=== PATIENT | female | born 1970 | race American Indian/Alaskan Native ===

== ENCOUNTER 2021-05-27 07:09 | Emergency (ER) | payer OTHER ==
[2021-05-27 07:54] VITALS: BP 158/86
[2021-05-27] MEDS ORDERED: dexAMETHasone 4 MG/ML VIAL IM ONE (09:54)
[2021-05-27] MEDS ORDERED: KETOROLAC 10 MG TAB PO ONE (09:56)
[2021-05-27] MEDS ORDERED: CYCLOBENZAPRINE 10 MG TAB PO ONE (09:56)
--- NOTE | 2021-05-27 10:20 | Emergency Department Report ---
ED Back Pain/Injury HPI - General Chief Complaint: Back Pain/Injury Stated Complaint: BACK PAIN Time Seen by Provider: 05/27/21 09:49 Source: patient Limitations: No Limitations - History of Present Illness Initial Comments: 50-year-old black female presents to the emergency department for evaluation of few day history of back pain. States that she was moving some things around a few days ago and started to have pain to her right thoracic back area. She states that she used ibuprofen and heating pad and has some improvement with the pain, but when she woke up this morning, pain was worse with stiffness. She denies fever, unexplained weight loss, urinary symptoms and neurologic symptoms. She states that she has had similar back pain in the past. MD Complaint: back pain -: Gradual, days(s) (2-3) Similar Symptoms Previously: Yes Place: home Radiation: none Severity: moderate Severity scale (0 -10): 8 Quality: aching Consistency: constant Worsens With: movement, walking Associated Symptoms: denies: weakness, chest pain, numbness, difficulty walking, cough, difficulty urinating, diaphoresis, incontinence, fever/chills, constipation, headaches, abdominal pain, loss of appetite, malaise, nausea/vomiting, rash, seizure, shortness of breath, syncope Treatments Prior to Arrival: heat therapy, NSAIDS - Related Data Previous Rx's Medication Instructions Recorded Last Taken Type Cyclobenzaprine [Flexeril] 10 mg PO TID PRN #21 tab 05/27/21 Unknown Rx Lidocaine [Lidoderm] 1 each TP DAILY PRN #10 patch 05/27/21 Unknown Rx Naproxen [Naprosyn] 500 mg PO BID #14 tab 05/27/21 Unknown Rx Allergies Allergy/AdvReac Type Severity Reaction Status Date / Time doxycycline Allergy Unknown Verified 05/27/21 07:51 ED Review of Systems ROS: Stated complaint: BACK PAIN Other details as noted in HPI Comment: All other systems reviewed and negative Constitutional: denies: chills, fever Eyes: denies: vision change Respiratory: denies: cough, shortness of breath Cardiovascular: denies: chest pain, palpitations Gastrointestinal: denies: abdominal pain, nausea, vomiting Genitourinary: denies: urgency, dysuria, frequency, hematuria, discharge Musculoskeletal: back pain Skin: denies: rash, lesions Neurological: denies: headache, weakness, numbness, paresthesias, abnormal gait ED Past Medical Hx - Medications Home Medications: Home Medications Medication Instructions Recorded Confirmed Last Taken Type Cyclobenzaprine [Flexeril] 10 mg PO TID PRN #21 tab 05/27/21 Unknown Rx Lidocaine [Lidoderm] 1 each TP DAILY PRN #10 patch 05/27/21 Unknown Rx Naproxen [Naprosyn] 500 mg PO BID #14 tab 05/27/21 Unknown Rx ED Physical Exam - General Limitations: No Limitations General appearance: alert, in no apparent distress - Head Head exam: Present: atraumatic, normocephalic - Eye Eye exam: Present: normal appearance. Absent: conjunctival injection - Neck Neck exam: Present: normal inspection. Absent: tenderness, lymphadenopathy - Respiratory Respiratory exam: Present: normal lung sounds bilaterally. Absent: respiratory distress, wheezes, rales, rhonchi, stridor, chest wall tenderness - Cardiovascular Cardiovascular Exam: Present: regular rate, normal heart sounds - GI/Abdominal GI/Abdominal exam: Present: soft, normal bowel sounds. Absent: distended, tenderness, guarding, rebound, rigid - Extremities Exam Extremities exam: Present: normal inspection, normal capillary refill. Absent: pedal edema, joint swelling, calf tenderness - Back Exam Back exam: Present: normal inspection, tenderness (Right thoracic area). Absent: CVA tenderness (R), CVA tenderness (L), vertebral tenderness - Neurological Exam Neurological exam: Present: alert, oriented X3, normal gait, reflexes normal. Absent: motor sensory deficit - Psychiatric Psychiatric exam: Present: normal affect, normal mood - Skin Skin exam: Present: warm, dry, intact, normal color ED Course Vital Signs 05/27/21 07:51 Temperature 98.4 F Pulse Rate 68 Respiratory 16 Rate Blood Pressure 158/86 [Left] O2 Sat by Pulse 97 Oximetry ED Medical Decision Making - Medical Decision Making 50-year-old black female presents to the emergency department for evaluation of few day history of back pain. States that she was moving some things around a few days ago and started to have pain to her right thoracic back area. She states that she used ibuprofen and heating pad and has some improvement with the pain, but when she woke up this morning, pain was worse with stiffness. She denies fever, unexplained weight loss, urinary symptoms and neurologic symptoms. She states that she has had similar back pain in the past. No gross abnormalities noted on exam but musculoskeletal pain only noted. Patient will be treated with one-time shot of Decadron in the emergency department along with Flexeril and Toradol. She will be discharged home with naproxen, Flexeril, and Lidoderm Derm patch to use as needed for pain. She is advised to take medications as prescribed and follow-up with primary care alfa jeffers if no improvement or worsening symptoms. She is advised to return to the emergency department for any concerning symptoms. She verbalized understanding of and agreement with plan of care. Critical care attestation.: If time is entered above; I have spent that time in minutes in the direct care of this critically ill patient, excluding procedure time. ED Disposition Clinical Impression: Back pain Qualifiers: Back pain location: thoracic back pain Chronicity: acute Back pain laterality: right Qualified Code(s): M54.6 - Pain in thoracic spine Disposition: HOME / SELF CARE / HOMELESS Is pt being admited?: No Does the pt Need Aspirin: No Condition: Stable Instructions: Acute Back Pain, Adult, Back Injury Prevention, [id number] Additional Instructions: Take medications as prescribed. Follow-up with primary care provider if no improvement or worsening symptoms. Prescriptions: Cyclobenzaprine [Flexeril] 10 mg PO TID PRN #21 tab PRN Reason: Muscle Spasm Lidocaine [Lidoderm] 1 each TP DAILY PRN #10 patch PRN Reason: Pain, Moderate (4-6) Naproxen [Naprosyn] 500 mg PO BID #14 tab Referrals: HEATHER GROVER MD [Referring] - 3-5 Days Forms: Work/School Release Form(ED) Time of Disposition: 10:20
== END 2021-05-27 10:39 | disposition home or self-care (01) ==
LOC: ED 07:09
DX: M54.6 Pain in thoracic spine (principal); Z88.1 Allergy status to other antibiotic agents
CPT/HCPCS: 96372; 99282; J1100